=== PATIENT | female | born 1980 | race Asian ===

== ENCOUNTER 2021-01-03 09:55 | Outpatient (CLI) | payer BC, SELFPAY ==
--- NOTE | ~2021-01-03 | XR_ITS ---
EXAMINATION: XR foot LT min 3V, XR foot RT min 3V DATE: 01/03/2021 10:16 INDICATION: Bilateral foot pain. Palpable mass at the base of the left and right first metatarsals. TECHNIQUE: 1. Dorsoplantar, two oblique and lateral views of the left foot were obtained. 2. Dorsoplantar, two oblique and lateral views of the right foot were obtained. COMPARISON: None. FINDINGS: Normal alignment at the bilateral feet. No fractures. Joint spaces are normal. No periosteal reaction or cortical erosions. Normal variant bilateral type II os naviculare. Soft tissues are unremarkable. IMPRESSION: 1. Negative left and right foot radiographs. Reviewed, dictated and finalized at location B. PASS OPERATOR IMPRESSION: 1. Negative left and right foot radiographs.
== END 2021-01-03 09:56 | disposition home or self-care (01) ==
LOC: CHSIMG 09:57
PROVIDERS: PCP Internal Medicine; Visit Provider Internal Medicine
DX: Q66.92 Congenital deformity of feet, unspecified, left foot (principal); Q66.91 Congenital deformity of feet, unspecified, right foot
CPT/HCPCS: 73630

== ENCOUNTER 2021-02-18 08:51 | Outpatient (CLI) | payer BC, SELFPAY ==
--- NOTE | ~2021-02-18 | MM_ITS ---
EXAMINATION: MM screening [facility] BI w oral HISTORY: Screening mammogram TECHNIQUE: Craniocaudal and mediolateral oblique 3-D tomosynthesis images were obtained and synthetic 2-D images were generated. CAD analysis was submitted and interpreted. COMPARISON: 11/17/2019 BREAST PARENCHYMAL COMPOSITION: The breasts are extremely dense, which lowers the sensitivity of mamm ography. FINDINGS: There is no evidence of suspicious mass, calcification, or architectural distortion to sugg est malignancy in either breast. There has been no suspicious interval change. IMPRESSION: 1. No mammographic evidence of malignancy. 2. Recommend routine screening mammography in one year. BI-RADS Category 1: Negative Reviewed, dictated and finalized at location A.
== END 2021-02-18 08:52 | disposition home or self-care (01) ==
PROVIDERS: PCP Internal Medicine; Visit Provider Internal Medicine
DX: Z12.31 Encounter for screening mammogram for malignant neoplasm of breast (principal)
CPT/HCPCS: 77063; 77067

== ENCOUNTER 2022-02-19 08:51 | Outpatient (CLI) | payer BC, SELFPAY ==
--- NOTE | ~2022-02-19 | MM_ITS ---
EXAMINATION: MM screening [facility] BI w oral HISTORY: Screening mammogram TECHNIQUE: Craniocaudal and mediolateral oblique 3-D tomosynthesis images were obtained and synthetic 2-D images were generated. CAD analysis was submitted and interpreted. COMPARISON: 02/18/2021 bilateral screening mammogram 11/17/2019 left screening and right diagnostic mammogram BREAST PARENCHYMAL COMPOSITION: The breasts are extremely dense, which lowers the sensitivity of mamm ography. FINDINGS: There is no evidence of suspicious mass, calcification, or architectural distortion to sugg est malignancy in either breast. There has been no suspicious interval change. IMPRESSION: 1. No mammographic evidence of malignancy. 2. Recommend routine screening mammography in one year. BI-RADS Category 1: Negative Reviewed, dictated and finalized at location A.
== END 2022-02-19 08:52 | disposition home or self-care (01) ==
LOC: CHSIMG 08:52
PROVIDERS: PCP Internal Medicine; Visit Provider Internal Medicine
DX: Z12.31 Encounter for screening mammogram for malignant neoplasm of breast (principal)
CPT/HCPCS: 77063; 77067

== ENCOUNTER 2022-11-27 08:12 | Outpatient (CLI) | payer BC, SELFPAY ==
--- NOTE | ~2022-11-27 | US_ITS ---
EXAMINATION: US breast LT complete HISTORY: Left breast pain, history of cystic breasts TECHNIQUE: Complete left breast ultrasound is performed including all four quadrants and the subareol ar aspect of the breast. COMPARISON: 11/17/2019 FINDINGS: There are multiple hypoechoic and anechoic, circumscribed, parallel masses throughout the l eft breast. The largest measures 2.1 x 1.0 cm at 8:00 location 2 cm from the nipple. Normal-appearing lymph nodes are seen in the left axilla. IMPRESSION: Multiple, probably benign left breast masses. Nonspecifically correlate the patient's left breast marco antonio n. Given history of breast pain, left diagnostic mammogram is recommended. BI-RADS Category 0: Incomplete: Needs additional imaging evaluation. Reviewed, dictated and finalized at location A. TER PUMP OILER IMPRESSION: Multiple, probably benign left breast masses. Nonspecifically correlate the pat ient's left breast pain. Given history of breast pain, left diagnostic mammogra m is recommended. BI-RADS Category 0: Incomplete: Needs additional imaging evaluation.
--- NOTE | ~2022-11-27 | US_ITS ---
EXAMINATION: US thyroid DATE: 11/27/2022 11:20 INDICATION: Hyperthyroidism. TECHNIQUE: Multiple ultrasound images of the thyroid were obtained. COMPARISON: None. FINDINGS: The right thyroid lobe measures 5.4 x 2.4 x 1.8 cm. The left thyroid lobe measures 5.5 x 1.9 x 1.7 c m. The thyroid isthmus measures 4 mm in thickness. No discrete nodules identified. There is normal ec hotexture, echogenicity and vascular flow throughout the thyroid gland. IMPRESSION: 1. Normal thyroid. Reviewed, dictated and finalized at location L. INE TANK OPERATOR IMPRESSION: 1. Normal thyroid.
== END 2022-11-27 08:13 | disposition home or self-care (01) ==
LOC: CHSIMG 08:13
PROVIDERS: PCP Internal Medicine; Visit Provider Internal Medicine
DX: N64.4 Mastodynia (principal); E78.5 Hyperlipidemia, unspecified; R92.8 Other abnormal and inconclusive findings on diagnostic imaging of breast
CPT/HCPCS: 76536; 76641

== ENCOUNTER 2022-12-05 08:46 | Outpatient (CLI) | payer BC, SELFPAY ==
--- NOTE | ~2022-12-05 | MM_ITS ---
EXAMINATION: MM diagnostic [facility] LT w oral HISTORY: Follow-up masses of the left breast seen on prior ultrasound. TECHNIQUE: Additional 3-D tomosynthesis images of the left breast were performed and synthetic 2-D im ages were generated. CAD analysis was submitted and interpreted. COMPARISON: Comparison to multiple prior studies sequentially, with oldest reviewed study dated 02/18. Comparison to previous ultrasound dated 11/27/2022. BREAST PARENCHYMAL COMPOSITION: The breasts are heterogeneously dense, which may obscure small masses FINDINGS: There is a mass in the subareolar location of the left breast on MLO view, not definitely s een on prior examination. This likely corresponds to one of the many masses seen on recent ultrasound . These were characterized as likely benign on prior study. IMPRESSION: 1. Probable benign left breast masses. 2. Recommend 6 month follow-up diagnostic bilateral mammogram and left breast ultrasound. BI-RADS category 3, probably benign findings. Reviewed, dictated and finalized at location A. ID SUPERINTENDENT IMPRESSION: 1. Probable benign left breast masses. 2. Recommend 6 month follow-up diagnostic bilateral mammogram and left breast u ltrasound. BI-RADS category 3, probably benign findings.
== END 2022-12-05 08:47 | disposition home or self-care (01) ==
LOC: CHSIMG 08:47
PROVIDERS: PCP Internal Medicine; Visit Provider Internal Medicine
DX: R92.8 Other abnormal and inconclusive findings on diagnostic imaging of breast (principal)
CPT/HCPCS: 77061; 77065; G0279

== ENCOUNTER 2023-03-02 07:24 | Outpatient (CLI) | payer BC, SELFPAY ==
--- NOTE | ~2023-03-02 | CT_ITS ---
CT of the Abdomen and Pelvis: Indication: Adrenal mass, abnormal liver enzymes Technique: 2.5 mm axial scans were obtained through the abdomen and pelvis following intravenous adm inistration of 100 cc of Omnipaque 350. Dose reduction technique was used on this scan by utilizing a utomated exposure control and iterative reconstruction technique. The dose-length product (DLP) was 1 79.18 mGy-cm. Findings: Scans through the lung bases are unremarkable. The liver, spleen, pancreas, gallbladder, adrenals and kidneys are within normal limits. No evidence of aortic aneurysm. No lymphadenopathy. No bowel obstruction or bowel wall thickening. There is no evidence to suggest acute appendicitis. Images through the pelvis were performed. Urinary bladder unremarkable. No adnexal mass seen. No asci sebastian. Impression: No significant abnormalities seen. Reviewed, dictated and finalized at location . Impression: No significant abnormalities seen.
== END 2023-03-02 07:25 | disposition home or self-care (01) ==
LOC: CHSIMG 07:25
PROVIDERS: PCP Internal Medicine; Visit Provider Nurse Practitioner Family
DX: E27.9 Disorder of adrenal gland, unspecified (principal); R10.9 Unspecified abdominal pain; R74.01 Elevation of levels of liver transaminase levels
CPT/HCPCS: 74177; Q9967

== ENCOUNTER 2023-06-29 08:56 | Outpatient (CLI) | payer BC, SELFPAY ==
--- NOTE | ~2023-06-29 | US_ITS ---
EXAMINATION: US thyroid DATE: 06/29/2023 09:28 INDICATION: Neck mass TECHNIQUE: Multiple ultrasound images of the thyroid were obtained. COMPARISON: 11/27/2022 FINDINGS: The right thyroid lobe measures 3.9 x 1.7 x 2.0 cm. The left thyroid lobe measures 4.3 x 1.5 x 1.7 c m. 1.4 x 0.9 cm solid wider than tall isoechoic nodule with smooth margins and without echogenic foc i (TI-RADS 3, mildly suspicious , FNA if >=2.5 cm, annual followup is >=1.5 cm) which arises from the medial cephalad margin of the right thyroid lobe. There is normal echotexture, echogenicity and vasc ular flow throughout the thyroid gland. IMPRESSION: 1. 1.4 cm TI RADS 3 nodule right thyroid nodule which remains below size threshold for either biopsy or follow-up. Recommend clinical followup with repeat imaging if there are changes on physical exam. Reviewed, dictated and finalized at location A. IMPRESSION: 1. 1.4 cm TI RADS 3 nodule right thyroid nodule which remains below size thresh old for either biopsy or follow-up. Recommend clinical followup with repeat king ging if there are changes on physical exam.
--- NOTE | ~2023-06-29 | MMUS_ITS ---
EXAMINATION: MM diagnostic [facility] BI w oral, US breast RT limited, US breast LT complete HISTORY: Six-month follow-up for probably benign left breast masses TECHNIQUE: Craniocaudal, mediolateral, and mediolateral oblique 3-D tomosynthesis images of the breas ts were performed and synthetic 2-D images were generated. CAD analysis was submitted and interpreted . High resolution complete left breast ultrasound including all four quadrants and the subareolar rolan ast in the mid and right breast ultrasound was performed. COMPARISON: 12/05/2022, 11/27/2022, 02/19/2022, 02/18/2021 BREAST PARENCHYMAL COMPOSITION: The breasts are extremely dense, which lowers the sensitivity of mamm ography. FINDINGS: MAMMOGRAPHIC FINDINGS: Right breast: There is subtle architectural distortion in the anterior third of the slightly outer ri ght breast approximately 2 cm from the nipple best appreciated on mediolateral tomosynthesis image 28 /56. Left breast: No definite left breast mass is identified. There are no suspicious calcification or arc hitectural distortion. ULTRASOUND: Right breast: There are multiple cysts in the subareolar aspect of the right breast. No definite sono graphic correlate is identified for the architectural distortion are identified on the mammogram. Left breast: There are multiple waxing and waning anechoic and hypoechoic left breast masses. No dist inct suspicious left breast mass is identified. IMPRESSION: 1. Right breast architectural distortion. Tomosynthesis guided biopsy is recommended. 2. Multiple benign left breast masses. Routine screening mammography of the left breast is recommende d. BI-RADS category 4, suspicious findings. Reviewed, dictated and finalized at location A. IMPRESSION: 1. Right breast architectural distortion. Tomosynthesis guided biopsy is recomm ended. 2. Multiple benign left breast masses. Routine screening mammography of the lef t breast is recommended. BI-RADS category 4, suspicious findings. IMPRESSION: 1. Right breast architectural distortion. Tomosynthesis guided biopsy is recomm ended. 2. Multiple benign left breast masses. Routine screening mammography of the lef t breast is recommended. BI-RADS category 4, suspicious findings.
== END 2023-06-29 08:57 | disposition home or self-care (01) ==
PROVIDERS: PCP Internal Medicine; Visit Provider Internal Medicine Endocrinology, Diabetes & Metabolism
DX: R92.8 Other abnormal and inconclusive findings on diagnostic imaging of breast (principal); E04.2 Nontoxic multinodular goiter
CPT/HCPCS: 76536; 76641; 76642; 77062; 77066; G0279

== ENCOUNTER 2024-02-03 09:16 | Outpatient (CLI) | payer BC, SELFPAY ==
--- NOTE | ~2024-02-03 | US_ITS ---
EXAMINATION: US thyroid DATE: 02/03/2024 09:37 INDICATION: Thyroid nodule TECHNIQUE: Multiple ultrasound images of the thyroid were obtained. COMPARISON: 06/29/2023 FINDINGS: The right thyroid lobe measures 5.9 x 1.3 x 1.9 cm. The left thyroid lobe measures 5.0 x 1.6 x 1.8 c m. Interval development of a cystic component to a now 1.8 cm mixed solid and cystic wider than tall nodule with isoechoic solid component with smooth margins and without echogenic foci arising from th e cephalad junction of the thyroid isthmus and right thyroid lobe. (TI-RADS 2, not suspicious, no FNA recommended). There is normal echotexture and echogenicity throughout the thyroid with diffuse incre ased vascular flow on color Doppler. IMPRESSION: 1. Interval increase in size and development of a cystic component of a now 1.8 cm TI RADS 2 right th yroid nodule. Reviewed, dictated and finalized at location A. IMPRESSION: 1. Interval increase in size and development of a cystic component of a now 1.8 cm TI RADS 2 right thyroid nodule.
== END 2024-02-03 09:17 | disposition home or self-care (01) ==
PROVIDERS: PCP Internal Medicine; Visit Provider Internal Medicine Endocrinology, Diabetes & Metabolism
DX: E04.1 Nontoxic single thyroid nodule (principal)
CPT/HCPCS: 76536